=== PATIENT | female | born 1995 | race Hispanic/Latino ===

== ENCOUNTER 2024-08-24 17:47 | Emergency (ER) | payer SELFPAY ==
[2024-08-24 18:47] LABS: Specific Gravity 1.021 (1.005-1.030)
[2024-08-24 18:48] LABS: Specific Gravity 1.021 (1.005-1.030); Sqamous Epithelial <5 /HPF (None Seen); Urine Bacteria None Seen /HPF (<20); Urine Bilirubin NEGATIVE (Negative); Urine Blood 3+ (Negative); Urine Clarity Extremely Turbid (Clear); Urine Color Light-Yellow (Yellow); Urine Culture Reflex Order NOT NEEDED; Urine Glucose NEGATIVE (Negative); Urine Ketones NEGATIVE (Negative); Urine Microscopic Reflex YN ORDER UMIC; Urine Nitrite NEGATIVE (Negative); Urine Protein TRACE (Negative); Urine RBC >50 /HPF (None Seen); Urine Urobilinogen Normal (Normal); Urine Yeast (Budding) Trace /HPF (None Seen)
--- NOTE | 2024-08-24 19:35 | RAD REPORT ---
EXAMINATION: US FIRST TRIMESTER TRANSVAGINAL WITH DOPPLER CLINICAL INDICATION: with pelvic pain and vaginal bleeding TECHNIQUE: Real-time obstetrical ultrasonography of the maternal pelvis and first trimester was performed transvaginally. Color and spectral Doppler evaluation of the ovaries was performed. COMPARISON: No prior exam. FINDINGS: The uterus measures 8 x 4 x 5 cm The endometrial stripe measures 7 mm. A gestational sac is not visualized. Right ovary normal in size and echotexture Left ovary normal in size and echotexture Right and left adnexa unremarkable No significant free fluid IMPRESSION: Non visualization of a gestational sac within the endometrium. This could be a viable intrauterine pr egnancy in which the gestational sac not seen secondary to the early gestation. Other considerations include an and even ectopic . This should be correlated clinically and with serial beta-hCG levels. Follow-up endovaginal sonogram in one week recommended for reevaluation
[2024-08-24 19:50] LABS: Absolute Eosinophils 0.3 K/uL (0-0.5); Absolute Lymphocytes (CBC) 2.1 K/uL (0.7-4.9); Absolute Monocytes 0.5 K/uL (0.1-1.3); Basophils % 0.3 % (0-1.3); Eosinophils % 3.7 % (0-4.4); Hematocrit 36.1 % (36.0-45.0); Hemoglobin 12.3 g/dL (12.0-15.0); Lymphocytes % 30.6 % (15.3-44.8); MCH 27.9 pg (27.0-35.0); MCV 81.9 fL (80-100); MPV 9.3 fL (7.6-11.3); Monocytes % 7.4 % (3.3-12.3); Platelets 200 thou/uL (152-406); Red Cell Distribution Width 14.6 % (12.1-15.2)
[2024-08-24 20:11] LABS: Anion Gap 7.6 mEq/L (5.0-15.0); Potassium 3.6 mEq/L (3.5-5.1)
--- NOTE | 2024-08-24 20:51 | ER ---
Nurse's Notes [facility] Name: Maliha De La Vega Age: 29 yrs Sex: Female : 1995 Arrival Date: 08/24/2024 Time: 17:47 Bed 8 Private MD: Diagnosis: Threatened Presentation: 08/24 17:55 Chief complaint: Patient states: vaginal bleeding, positive test today. ko1 Coronavirus screen: At this time, the client does not indicate any symptoms associated with coronavirus-19. Ebola Screen: No symptoms or risks identified at this time. Initial Sepsis Screen: Does the patient meet any 2 criteria? No. Patient's initial sepsis screen is negative. Does the patient have a suspected source of infection? No. Patient's initial sepsis screen is negative. Risk Assessment: Do you want to hurt yourself or someone else? Patient reports no desire to harm self or others. Onset of symptoms was August 24, 2024. 17:55 Method Of Arrival: Ambulatory ko1 17:55 Acuity: PAYTON 4 ko1 Triage Assessment: 17:58 General: Appears in no apparent distress. Behavior is calm, cooperative, appropriate ko1 for age. Pain: Denies pain. : Reports vaginal bleeding that is bright red, with clots. 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 - Infectious Disease History:: Denies. - Social history:: Smoking status: Patient denies any tobacco usage or history of. Screenin:45 [facility] ED Fall Risk Assessment (Adult) History of falling in the last 3 months, dd2 including since admission No falls in past 3 months (0 pts) Confusion or Disorientation No (0 pts) Intoxicated or Sedated No (0 pts) Impaired Gait No (0 pts) Mobility Assist Device Used No (0 pt) Altered Elimination No (0 pt) Score/Fall Risk Level 0 - 2 = Low Risk Oriented to surroundings, Maintained a safe environment, Educated pt \T\ family on fall prevention, incl call for assistance when getting out of bed, Assessed \T\ reinforced patient's understanding of fall precautions, Hourly rounding (assess needs \T\ fall precautionary measures) done. Abuse screen: Denies threats or abuse. Nutritional screening: No deficits noted. Tuberculosis screening: No symptoms or risk factors identified. Assessment: 19:45 General: Appears in no apparent distress. Behavior is calm, cooperative, appropriate dd2 for age. Pain: Complains of pain in suprapubic area Pain does not radiate. Pain currently is 1 out of 10 on a pain scale. Quality of pain is described as crampy. Neuro: No deficits noted. Berry Agitation-Sedation Scale (RASS): 0 - Alert and Calm Level of Consciousness is awake, alert, obeys commands, Oriented to person, place, time, situation, Appropriate for age. Cardiovascular: No deficits noted. Patient's skin is warm and dry. Respiratory: No deficits noted. Airway is patent Respiratory effort is even, unlabored, Respiratory pattern is regular, symmetrical. GI: No deficits noted. Abdomen is flat, non-distended, Bowel sounds present X 4 quads. Abdomen is tender to palpation in suprapubic area. : NO BLEEDING NOTED TENDERNESS TO SUPRAPUBIC Reports pain in suprapubic area Pain is 1 out of 10 on a pain scale. vaginal bleeding that is bright red, with clots. EENT: No deficits noted. No signs and/or symptoms were reported regarding the EENT system. Derm: No deficits noted. No signs and/or symptoms reported regarding the dermatologic system. Musculoskeletal: No deficits noted. No signs and/or symptoms reported regarding the musculoskeletal system. Circulation, motion, and sensation intact. Range of motion: intact in all extremities. Vital Signs: 17:55 BP 134 / 76; Pulse 74; Resp 16; Temp 97; Pulse Ox 100% ; Weight 60 kg; Height 5 ft. 1 ko1 in. ; 17:55 Body Mass Index 24.99 (60.00 kg, 154.94 cm) ko1 Genaro Coma Score: 19:45 Eye Response: spontaneous(4). Motor Response: obeys commands(6). Verbal Response: dd2 oriented(5). Total: 15. ED Course: 17:49 Patient arrived in ED. mr 17:50 [facility]C [facility]. kb 17:50 Marilu Oneil MD is Attending Physician. kb 17:58 Triage completed. ko1 17:58 Arm band placed on right wrist. Patient placed in waiting room, Patient notified of ko1 wait time. 19:14 US Transvaginal Ob In Process Unspecified. EDMS 19:22 ROSENDA NICOLE, RN is Primary Nurse. dd2 19:45 Patient has correct armband on for positive identification. Bed in low position. Call dd2 light in reach. Side rails up X 1. Client placed on continuous cardiac and pulse oximetry monitoring. NIBP monitoring applied. Door closed. Noise minimized. Warm blanket given. Pillow given. Verbal reassurance given. 19:45 Abo/rh Typing Sent. dd2 19:45 Basic Metabolic Panel Sent. dd2 19:45 CBC with Diff Sent. dd2 19:45 Quantitative Hcg Sent. dd2 19:45 Initial lab(s) drawn, by me, sent to lab. Inserted saline lock: 20 gauge in right dd2 antecubital area, using aseptic technique. Blood collected. Flushed with 10 mL NS. 19:45 No provider procedures requiring assistance completed. Patient maintains SpO2 dd2 saturation greater than 95% on room air. 19:46 PHCP role handed off by Kitty Lopez FNP-C cp 19:46 Gigi Barbosa PA is PHCP. cp 22:26 IV discontinued, bleeding controlled, No redness/swelling at site. Pressure dressing rg5 applied. Administered Medications: No medications were administered Medication: 19:45 VIS not applicable for this client. dd2 Outcome: 20:51 Discharge ordered by . cp 22:26 Discharged to home ambulatory, rg5 22:26 Condition: stable 22:26 Discharge instructions given to patient, Instructed on discharge instructions, follow up and referral plans. Demonstrated understanding of instructions, follow-up care, 22:27 Patient left the ED. rg5 Signatures: Dispatcher [employer] EDMN Kitty Lopez FNP-C METAL BENDING MACHINE OPERATOR-CkMikki Tian, Reg Reg mr Gigi Barbosa PA PA cp Perri Lima, KIKO RN ko1 Rajinder Kyle RN RN rg5 ROSENDA NICOLE, RN RN dd2
--- NOTE | 2024-08-24 20:51 | EDPHYS ---
Physician Documentation [facility] Name: Maliha De La Vega Age: 29 yrs Sex: Female : 1995 Arrival Date: 08/24/2024 Time: 17:47 Bed 8 Private MD: ED Physician Marilu Oneil HPI: 08/24 19:29 This 29 yrs old Female presents to ER via Ambulatory with complaints of kb Vaginal Bleeding, Possible . 19:29 Patient is a 29-year-old female who presents for vaginal bleeding and possible kb miscarriage. States she started having vaginal bleeding 2 days ago and it seemed like a normal period but then it got heavier today. Reports mild cramping to suprapubic area. States she took a test this morning and was positive. Reports she has irregular periods so she cannot remember when the last one was. G2, . 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 - Infectious Disease History:: Denies. - Social history:: Smoking status: Patient denies any tobacco usage or history of. ROS: 19:29 Constitutional: As per HPI kb Exam: 19:29 Constitutional: This is a well developed, well nourished patient who is awake, alert, kb and in no acute distress. Head/Face: Normocephalic, atraumatic. ENT: Moist Mucous membranes Cardiovascular: Regular rate Respiratory: Respirations even and unlabored. No increased work of breathing. Talking in full sentences Abdomen/GI: Soft, non-tender. No distention Skin: Warm, dry with normal turgor. Normal color. MS/ Extremity: Pulses equal, no cyanosis. Neurovascular intact. Full, normal range of motion. Neuro: Awake and alert, GCS 15, oriented to person, place, time, and situation. Vital Signs: 17:55 BP 134 / 76; Pulse 74; Resp 16; Temp 97; Pulse Ox 100% ; Weight 60 kg; Height 5 ft. 1 ko1 in. ; 17:55 Body Mass Index 24.99 (60.00 kg, 154.94 cm) ko1 Genaro Coma Score: 19:45 Eye Response: spontaneous(4). Motor Response: obeys commands(6). Verbal Response: dd2 oriented(5). Total: 15. MDM: 17:51 Medical Screening Exam initiated kb 19:30 Differential diagnosis: ectopic , menorrhea, Data reviewed: vital signs, kb nurses notes. 19:47 Transition of care: After a detail discussion of the patient's case, care is kb transferred to Gigi GUZMAN. 08/24 17:58 Order name: Test, Urine; Complete Time: 18:57 kb 08/24 20:40 Interpretation: Reviewed. 08/24 17:58 Order name: Urinalysis w/ reflexes; Complete Time: 18:57 kb 08/24 20:40 Interpretation: Normal except: [facility] Extremely Turbid; UBLD 3+; UPROT TRACE; URBC >50; cp BYST Trace. 08/24 18:57 Order name: Abo/rh Typing; Complete Time: 20:39 kb 08/24 20:40 Interpretation: Reviewed. 08/24 18:57 Order name: Basic Metabolic Panel; Complete Time: 20:39 kb 08/24 20:39 Interpretation: Normal except: CL 108; GLUC 118. 08/24 18:57 Order name: CBC with Diff; Complete Time: 20:39 kb 08/24 20:40 Interpretation: Reviewed. 08/24 18:57 Order name: Quantitative Hcg; Complete Time: 20:39 kb 08/24 20:40 Interpretation: Abnormal: HCGQ 1054. 08/24 18:57 Order name: US Transvaginal Ob; Complete Time: 19:45 kb 08/24 18:57 Order name: IV Saline Lock; Complete Time: 19:45 kb 08/24 18:57 Order name: Labs collected and sent; Complete Time: 19:45 kb 08/24 18:57 Order name: NPO; Complete Time: 19:32 kb Administered Medications: No medications were administered Disposition Summary: 08/24/24 20:51 Discharge Ordered Notes: Location: Home cp Problem: new cp Symptoms: have improved cp Condition: Stable cp Diagnosis - Threatened cp Followup: cp - With: Private Physician - When: 48 Hours - Reason: Repeat Beta-HCG (48 Hours) Discharge Instructions: - Discharge Summary Sheet cp - Care cp - Threatened Miscarriage cp - Vaginal Bleeding During , First Trimester cp - First Trimester of cp - Activity Restriction During cp Forms: - Medication Reconciliation Form cp - Antibiotic Education cp - Prescription Opioid Use cp - Patient Portal Instructions cp - Leadership Thank You Letter cp Signatures: Dispatcher [employer] iKtty Mcclendon FNP-C FNP-Gigi Mcbride PA PA cp Oliver, Kathy, RN RN ko1
[2024-08-24 23:46] VITALS: BP 134/76; TEMP 97; O2SAT 100
== END 2024-08-24 22:27 | disposition home or self-care (01) ==
LOC: ER 17:47
DX: O20.0 Threatened abortion (principal)
CPT/HCPCS: 36415; 76817; 80048; 81001; 81025; 84702; 85025; 86900; 86901